=== PATIENT | male | born 1950 | race Caucasian/White ===

== ENCOUNTER 2017-04-17 12:02 | Emergency (ER) | payer BC, OTHER ==
[~2017-04-17] VITALS: Ht 182.9 cm; Wt 121.4 kg
[~2017-04-17 12:02] MED LIST: ASPIR-TRIN325 M1 PO; CIPRO500 MG PO; FLOMAX0.4 MG PO; K-DUR20 MEQ PO; MONTELUKAST SOD10 MG PO; NAPROSYN500 MG PO; PANTOPRAZOLE SO40 MG PO; PERCOCET 5/31 TABLET PO; SERTRALINE HCL50 MG PO; SIMVASTATIN40 MG PO; SPIRIVA RESPIMAT4 GM IH; TRICOR145 MG PO; VALSARTAN-HCTZ1 EAC1 PO; ZOFRAN ODT4 MG PO
[2017-04-17 13:30] LABS: BILIRUBIN NEGATIVE; BLOOD NEGATIVE; GLUCOSE (STRIP) NEGATIVE; KETONES NEGATIVE; LEUKOCYTES NEGATIVE; NITRITE NEGATIVE; PROTEIN (STRIP) NEGATIVE; SPECIFIC GRAVITY 1.011 (1.000-1.030); UROBILINOGEN 0.2 MG/DL (0.2-1.0)
[2017-04-17 13:31] LABS: HEMATOCRIT 40.8 % (38.0-50.0); MCH 30.5 PG (29.0-34.0); MCHC 32.8 G/DL (30.0-36.0); MCV 92.9 FL (86-99); MEAN PLAT.VOLUME 10.7 uM^3 (9.0-12.4); PLATELET COUNT 473 K/uL (156-360); RBC DIS.WIDTH-CV 14.4 % (11.8-14.6); RBC DIS.WIDTH-SD 49.5 % (39-53); RED BLOOD COUNT 4.39 M/uL (4.00-5.50); WHITE BLOOD COUNT 8.6 K/uL (4.1-10.2)
[2017-04-17 13:31] LABS: ADD MIUA? NO; COLOR LT YELLOW ((YELLOW)); UCUL ADDED? NO
[2017-04-17 13:44] LABS: CHLORIDE 101 mEq/L (99-109); POTASSIUM 4.1 mEq/L (3.7-5.4); SODIUM 135 mEq/L (136-147)
[2017-04-17 13:46] LABS: GLUCOSE 94 mg/dL (70-99)
[2017-04-17 13:47] LABS: ANION GAP 11 MEQ/L (2-14)
[2017-04-17 13:49] LABS: GFR ESTIMATE (CALCULATED) > 59 mL/min/
[2017-04-17 13:50] LABS: UREA NITROGEN (BUN) 20 mg/dL (9-23)
[2017-04-17] MEDS ORDERED: ARYMO ER15 MG PO (16:14)
[2017-04-17 16:21] VITALS: BP 158/76
== END 2017-04-17 16:40 | disposition home or self-care (01) ==
LOC: EME 12:02
DX: N20.0 Calculus of kidney (principal); M54.5 Low back pain; Z87.442 Personal history of urinary calculi; I10 Essential (primary) hypertension; J44.9 Chronic obstructive pulmonary disease, unspecified; K21.9 Gastro-esophageal reflux disease without esophagitis; F32.9 Major depressive disorder, single episode, unspecified; Z87.891 Personal history of nicotine dependence; Z96.653 Presence of artificial knee joint, bilateral
CPT/HCPCS: 74176; 80048; 81003; 85027; 99281; 99285; J1885

== ENCOUNTER → 2017-10-22 | Outpatient (CLI) | payer OTHER, BC ==
[~2017-10-22] MED LIST changes: +ARYMO ER15 MG PO
== END | disposition home or self-care (01) ==
LOC: EKG 12:49
DX: I51.7 Cardiomegaly (principal); I27.20 Pulmonary hypertension, unspecified; J98.4 Other disorders of lung
CPT/HCPCS: 93306